=== PATIENT | male | born 1980 | race American Indian/Alaskan Native ===

== ENCOUNTER 2017-12-15 23:09 | Emergency (ER) | payer SELFPAY ==
[2017-12-15] MEDS ORDERED: MOTRIN PO ONE (23:47)
[2017-12-16] MEDS ORDERED: TRIMOX PO ONE (01:47)
[2017-12-16] MEDS ORDERED: TYLENOL PO ONE (01:49)
[2017-12-16] MEDS ORDERED: DECADRON IM ONE (01:49)
--- NOTE | 2017-12-16 02:01 | Emergency Department Report ---
ED ENT HPI - General Chief complaint: Sore Throat Stated complaint: SWOLLEN TONSILS Time Seen by Provider: 12/16/17 01:29 Source: patient Mode of arrival: Ambulatory Limitations: No Limitations - History of Present Illness Initial comments: Patient is 37-year-old -Stateless male who presents with sore throat 3 days , fever 102.1 . 3 /10 achy with dysphagia symptoms are relieved by nothing symptoms exacerbated by swallowing. MD complaint: sore throat Onset/Timin -: days(s) Location: throat Severity: moderate Severity scale (0 -10): 3 Quality: burning, sharp Consistency: intermittent Improves with: none Worsens with: swallowing Associated Symptoms: fever, sore throat - Related Data Previous Rx's Medication Instructions Recorded Last Taken Type Amoxicillin 500 mg PO TID #30 capsule 12/16/17 Unknown Rx Benzocaine/Menth/Cetylpyrd 1 each MM Q2H PRN #3 packet 12/16/17 Unknown Rx [Cepacol X Strength] Dexamethasone [Decadron] 4 mg PO Q12H #4 tablet 12/16/17 Unknown Rx Ibuprofen 800 mg PO TID PRN #30 tablet 12/16/17 Unknown Rx Allergies Allergy/AdvReac Type Severity Reaction Status Date / Time No Known Allergies Allergy Verified 12/16/17 01:37 ED Dental HPI - General Chief complaint: Sore Throat Stated complaint: SWOLLEN TONSILS Time Seen by Provider: 12/16/17 01:29 Source: patient Mode of arrival: Ambulatory Limitations: No Limitations - Related Data Previous Rx's Medication Instructions Recorded Last Taken Type Amoxicillin 500 mg PO TID #30 capsule 12/16/17 Unknown Rx Benzocaine/Menth/Cetylpyrd 1 each MM Q2H PRN #3 packet 12/16/17 Unknown Rx [Cepacol X Strength] Dexamethasone [Decadron] 4 mg PO Q12H #4 tablet 12/16/17 Unknown Rx Ibuprofen 800 mg PO TID PRN #30 tablet 12/16/17 Unknown Rx Allergies Allergy/AdvReac Type Severity Reaction Status Date / Time No Known Allergies Allergy Verified 12/16/17 01:37 ED Review of Systems ROS: Stated complaint: SWOLLEN TONSILS Other details as noted in HPI Constitutional: chills, diaphoresis Eyes: denies: eye pain, eye discharge, vision change ENT: throat pain. denies: ear pain, congestion Respiratory: denies: cough, shortness of breath, wheezing Cardiovascular: denies: chest pain, palpitations Endocrine: no symptoms reported Gastrointestinal: denies: abdominal pain, nausea, diarrhea Genitourinary: denies: urgency, dysuria Musculoskeletal: denies: back pain, joint swelling, arthralgia Skin: denies: rash, lesions Neurological: denies: headache, weakness, paresthesias Psychiatric: denies: anxiety, depression Hematological/Lymphatic: denies: easy bleeding, easy bruising ED Past Medical Hx - Past Medical History Previous Medical History?: Yes Hx Asthma: Yes - Surgical History Past Surgical History?: No - Social History Smoking Status: Never Smoker Substance Use Type: Alcohol, Marijuana - Medications Home Medications: Home Medications Medication Instructions Recorded Confirmed Last Taken Type Amoxicillin 500 mg PO TID #30 capsule 12/16/17 Unknown Rx Benzocaine/Menth/Cetylpyrd 1 each MM Q2H PRN #3 packet 12/16/17 Unknown Rx [Cepacol X Strength] Dexamethasone [Decadron] 4 mg PO Q12H #4 tablet 12/16/17 Unknown Rx Ibuprofen 800 mg PO TID PRN #30 tablet 12/16/17 Unknown Rx ED Physical Exam - General Limitations: No Limitations General appearance: alert, in no apparent distress - Head Head exam: Present: atraumatic, normocephalic - Eye Eye exam: Present: normal appearance, EOMI Pupils: Present: normal accommodation - ENT ENT exam: Present: mucous membranes moist, TM's normal bilaterally, normal external ear exam - Expanded ENT Exam Expanded Throat exam: Positive: tonsillar erythema, tonsillomegaly, tonsillar exudate. Negative: R peritonsillar mass, L peritonsillar mass - Neck Neck exam: Present: normal inspection - Respiratory Respiratory exam: Present: normal lung sounds bilaterally. Absent: respiratory distress, wheezes, stridor, chest wall tenderness - Cardiovascular Cardiovascular Exam: Present: regular rate, normal rhythm. Absent: systolic murmur, diastolic murmur, rubs, gallop - GI/Abdominal GI/Abdominal exam: Present: soft, normal bowel sounds - Rectal Rectal exam: Present: deferred - Extremities Exam Extremities exam: Present: normal inspection - Back Exam Back exam: Present: normal inspection - Neurological Exam Neurological exam: Present: alert, oriented X3 - Psychiatric Psychiatric exam: Present: normal affect, normal mood - Skin Skin exam: Present: warm, dry, intact, normal color. Absent: rash ED Course Vital Signs 12/15/17 23:35 Temperature 100.7 F H Pulse Rate 83 Respiratory 16 Rate Blood Pressure 133/83 O2 Sat by Pulse 97 Oximetry ED Medical Decision Making - Medical Decision Making rapid strep test pos plan: ibuprofen, amoxicilin, cepachol lozenges pt will follow up with pcp in 2-3 days pt verbalized egreement and understanding of discharge plan. Critical care attestation.: If time is entered above; I have spent that time in minutes in the direct care of this critically ill patient, excluding procedure time. ED Disposition Clinical Impression: Pharyngitis Qualifiers: Pharyngitis/tonsillitis etiology: unspecified etiology Qualified Code(s): J02.9 - Acute pharyngitis, unspecified Disposition: TO HOME OR SELFCARE Is pt being admited?: No Does the pt Need Aspirin: No Condition: Good Instructions: Strep Throat (ED) Prescriptions: Amoxicillin 500 mg PO TID #30 capsule Benzocaine/Menth/Cetylpyrd [Cepacol X Strength] 1 each MM Q2H PRN #3 packet PRN Reason: throat pain Dexamethasone [Decadron] 4 mg PO Q12H #4 tablet Ibuprofen 800 mg PO TID PRN #30 tablet PRN Reason: pain fever Referrals: PRIMARY CARE, [Primary Care Provider] - 3-5 Days Forms: Work/School Release Form(ED) Time of Disposition: 02:05
[2017-12-16 02:35] VITALS: BP 118/80
== END 2017-12-16 02:34 | disposition home or self-care (01) ==
LOC: ED 23:09
DX: J02.9 Acute pharyngitis, unspecified (principal); R13.10 Dysphagia, unspecified; J45.909 Unspecified asthma, uncomplicated; F12.90 Cannabis use, unspecified, uncomplicated
CPT/HCPCS: 87430; 96372; 99283; J1100